=== PATIENT | female | born 1930 | race Caucasian/White ===

== ENCOUNTER 2018-08-20 17:11 | Emergency (ER) | payer MEDICARE, OTHER ==
[~2018-08-20] VITALS: Ht 154.9 cm; Wt 68.0 kg
[2018-08-20] MEDS ORDERED: TETANUS,DIPTH,PERTUSS P/F (BOOSTRIX) 0.5 ML VIAL IM ONE (17:30)
[2018-08-20] MEDS ORDERED: TR1O15 TP (17:33)
[2018-08-20] MEDS ORDERED: DOXY100T2 PO (17:33)
--- NOTE | 2018-08-20 17:34 | ED Integumentary General ---
General Chief Complaint: Bite-Animal/Human/Insect Stated Complaint: TICK BITE ON BACK Nursing Triage Note: TICK BITE ON HER MID BACK BUT REMOVED THE TICK ON MONDAY AND IT WAS STILL ALIVE WHEN SHE REMOVED IT. REDNESS ABOUT DIME SIZE TO THE SITE. NO DRAINAGE. Source: patient, RN notes reviewed Exam Limitations: no limitations History of Present Illness Date Seen by Provider: August 20, 2018 Time Seen by Provider: 17:26 Initial Comments Patient presents c/ c/o a tick bite to her mid back last Monday, 08/15. States she removed the tick and its' head but now concerned because of the redness that has developed @ the bite site. Thought she better get it checked. Timing/Duration: other (see above) Location: torso (mid back) Possible Cause: insect bite (tick) Modifying Factors: improves with other Associated Symptoms: other (redness) Allergies and Home Medications Allergies Coded Allergies: No Known Drug Allergies (Unverified , 08/20/18) Home Medications Doxycycline Hyclate 100 Mg Tablet, 100 MG PO BID Prescribed by: HANK TAYLOR on 08/20/181732 Triamcinolone Acet 15 Gm Oint, 1 APPLIC TP BID Prescribed by: HANK TAYLOR on 08/20/181732 Patient Home Medication List Home Medication List Reviewed: Yes Review of Systems Review of Systems Constitutional: see HPI Skin: see HPI, other (redness @ tick bite mid back) All Other Systems Reviewed Negative Unless Noted: Yes (Negative excepted noted.) Past Gqamkln-Vliemi-Uygaoi Hx Patient Social History Recent Foreign Travel: No Contact w/Someone Who Travel: No Recent Infectious Disease Expo: No Physical Abuse: No Sexual Abuse: No Mistreated: No Fear: No Physical Exam Vital Signs Vital Signs - First Documented 08/20/18 17:15 Temp 99.8 Pulse 76 Resp 18 B/P (MAP) 193/76 (115) Capillary Refill : Less Than 3 Seconds General Appearance: WD/WN, no apparent distress Cardiovascular: regular rate, rhythm Respiratory: no respiratory distress Neurologic/Psychiatric: no motor/sensory deficits, alert, normal mood/affect, oriented x 3 Skin: warm/dry Skin Problem Location: torso (mid back dime sized redness around reported tick bite. No evidence of any retained tick upon close inspection. (+) blanching. ) Skin Problem Character: blanching, erythema Progress/Results/Core Measures Results/Orders My Orders Orders - HANK TAYLOR DO Dipht,Pertuss(Acell),Tet Adult (Boostrix (08/20/18 17:30) Vital Signs/I&O 08/20/18 17:15 Temp 99.8 Pulse 76 Resp 18 B/P (MAP) 193/76 (115) Blood Pressure Mean: 115 Departure Impression Primary Impression: Tick bite of back Disposition: HOME, SELF-CARE Condition: Stable Departure-Patient Inst. Decision time for Depature: 17:31 Referrals: JODI PAREKH APRN (PCP/Family) Primary Care Physician Patient Instructions: Insect Bites and Stings (DC) Scripts Triamcinolone Acet (Triamcinolone Acetonide 0.1% Ointment) 15 Gm Oint 1 APPLIC TP BID for tick bite, #1 TUBE 0 Refills Prov: HANK TAYLOR DO 08/20/18 Doxycycline Hyclate (Doxycycline Hyclate) 100 Mg Tablet 100 MG PO BID for 10 Days, #20 TAB 0 Refills Prov: HANK TAYLOR DO 08/20/18 HANK TAYLOR DO August 20, 2018 17:34
[2018-08-20 17:44] VITALS: BP 154/72
== END 2018-08-20 17:45 | disposition home or self-care (01) ==
LOC: ER FS 17:14
DX: S20.469A Insect bite (nonvenomous) of unspecified back wall of thorax, initial encounter (principal); Z23 Encounter for immunization; W57.XXXA Bitten or stung by nonvenomous insect and other nonvenomous arthropods, initial encounter
CPT/HCPCS: 99284

== ENCOUNTER → 2018-12-20 | Outpatient (CLI) | payer MEDICARE, OTHER ==
[~2018-12-20] MED LIST: DOXY100T2 PO; TR1O15 TP
--- NOTE | 2018-12-20 12:57 | Diagnostic Imaging Report ---
INDICATION: Cervical pain. COMPARISON: None available. TECHNIQUE: Four radiographs of the cervical spine dated December 20, 2018. FINDINGS: Minimal anterolisthesis of C4 on C5 measuring approximately 2 mm. Minimal retrolisthesis of C5 on C6 measuring approximately 2 mm. Besides endplate degenerative changes, particularly at C5-C6, vertebral body heights are otherwise well-maintained. Severe disc space height loss at C5-C6. Otherwise, disc space heights are well-maintained. Scattered facet joint degenerative changes. The lateral masses are well seated. The dens is predominantly obscured by overlying teeth and osseous structures. No acute fracture or dislocation. No destructive osseous process. Scattered vascular calcification. Prevertebral soft tissues are unremarkable. The visualized lung apices are clear. IMPRESSION: No acute osseous abnormality with moderate degenerative changes, by far greatest at C5-C6. Dictated by: Dictated on workstation # [id number]
== END ==
LOC: RAD FS 11:23
PROVIDERS: ATTEND Nurse Practitioner Family
DX: M47.812 Spondylosis without myelopathy or radiculopathy, cervical region (principal)
CPT/HCPCS: 72040

== ENCOUNTER 2019-03-27 21:31 | Emergency (ER) | payer MEDICARE, OTHER ==
[~2019-03-27] VITALS: Ht 164.9 cm; Wt 69.8 kg
--- NOTE | 2019-03-27 21:59 | ED Abdominal Pain ---
General Chief Complaint: Abdominal/GI Problems Stated Complaint: SEVERE PAIN IN L GROIN,RASH Nursing Triage Note: Patient states that she is having lower left abdominal pain that started today. Patient does report that it feels better when she passes gas. She reports having a bowel movement this morning but feels like she needs to go again. Sepsis Screen: No Definite Risk Source of Information: Patient Exam Limitations: No Limitations History of Present Illness Date Seen by Provider: Mar 27, 2019 Time Seen by Provider: 21:40 Initial Comments Patient came into the emergency room with complaint of having left lower quadrant abdominal pain for the past 2-3 days and was having nausea. She does have prior history of diverticulitis. Patient also noticed rash on her left lower back in her tailbone area 10 days ago. On exam it does not appear like shingles. Patient denies having any fever or chills. She feels nauseous but denies having any vomiting. She's been eating and drinking normally. Timing/Duration: 2-3 Days Severity/Quality: Mild Location: LLQ Radiation: No Radiation Activities at Onset: None Associated Symptoms: No Back Pain, No Chest Pain, No Headache; Nausea/Vomiting; No Weakness Allergies and Home Medications Allergies Coded Allergies: No Known Drug Allergies (Unverified , 08/20/18) Home Medications Doxycycline Hyclate 100 Mg Tablet, 100 MG PO BID Prescribed by: HANK TAYLOR on 08/20/181732 Triamcinolone Acet 15 Gm Oint, 1 APPLIC TP BID Prescribed by: HANK TAYLOR on 08/20/181732 Patient Home Medication List Home Medication List Reviewed: Yes Review of Systems Review of Systems Constitutional: see HPI EENTM: See HPI Respiratory: Denies Cough Cardiovascular: Denies Chest Pain Gastrointestinal: Abdominal Pain Genitourinary: Denies Burning Musculoskeletal: No back pain Skin: No see HPI Psychiatric/Neurological: Denies Weakness Endocrine: See HPI Hematologic/Lymphatic: See HPI Past Bsaqihz-Rhsavu-Szkhum Hx Patient Social History Alcohol Use: Denies Use Recreational Drug Use: No Smoking Status: Never a Smoker 2nd Hand Smoke Exposure: No Recent Foreign Travel: No Contact w/Someone Who Travel: No Recent Infectious Disease Expo: No Physical Abuse: No Sexual Abuse: No Mistreated: No Fear: No Seasonal Allergies Seasonal Allergies: No Past Medical History Appendectomy, Breast, Cystectomy, Hysterectomy, Orthopedic Respiratory: No Cardiac: Yes Hypertension 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 oz. 68.638297qs; 25.00 BMI Method:Stated General Appearance: no apparent distress HEENT: PERRL/EOMI, normal ENT inspection Neck: non-tender, full range of motion, supple Respiratory: chest non-tender, lungs clear, normal breath sounds, no respiratory distress, no accessory muscle use Cardiovascular: normal peripheral pulses, regular rate, rhythm, no edema, no gallop, no JVD, no murmur Gastrointestinal: normal bowel sounds, non tender, soft, no organomegaly, no pulsatile mass Extremities: normal range of motion, non-tender, normal inspection, no pedal edema, no calf tenderness, normal capillary refill, pelvis stable Pelvic: discharge 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, no motor/sensory deficits, alert, normal mood/affect, oriented x 3 Skin: normal color, other (no shingles rash) Progress/Results/Core Measures Results/Orders Lab Results Laboratory Tests Test 03/27/19 22:15 Range/Units White Blood Count 5.0 4.3-11.0 10^3/uL Red Blood Count 4.94 4.35-5.85 10^6/uL Hemoglobin 13.4 11.5-16.0 G/DL Hematocrit 40 35-52 % Mean Corpuscular Volume 81 80-99 FL Mean Corpuscular Hemoglobin 27 25-34 PG Mean Corpuscular Hemoglobin Concent 33 32-36 G/DL Red Cell Distribution Width 13.2 10.0-14.5 % Platelet Count 205 130-400 10^3/uL Mean Platelet Volume 9.6 7.4-10.4 FL Neutrophils (%) (Auto) 51 42-75 % Lymphocytes (%) (Auto) 30 12-44 % Monocytes (%) (Auto) 13 H 0-12 % Eosinophils (%) (Auto) 4 0-10 % Basophils (%) (Auto) 1 0-10 % Neutrophils # (Auto) 2.5 1.8-7.8 X 10^3 Lymphocytes # (Auto) 1.5 1.0-4.0 X 10^3 Monocytes # (Auto) 0.7 0.0-1.0 X 10^3 Eosinophils # (Auto) 0.2 0.0-0.3 10^3/uL Basophils # (Auto) 0.1 0.0-0.1 10^3/uL Urine Color YELLOW Urine Clarity CLEAR Urine pH 7.0 5-9 Urine Specific [place] 1.010 L 1.016-1.022 Urine Protein NEGATIVE NEGATIVE Urine Glucose (UA) NEGATIVE NEGATIVE Urine Ketones NEGATIVE NEGATIVE Urine Nitrite NEGATIVE NEGATIVE Urine Bilirubin NEGATIVE NEGATIVE Urine Urobilinogen 0.2 < = 1.0 MG/DL Urine Leukocyte Esterase NEGATIVE NEGATIVE Urine RBC (Auto) NEGATIVE NEGATIVE Urine RBC NONE /HPF Urine WBC RARE /HPF Urine Squamous Epithelial Cells 0-2 /HPF Urine Crystals NONE /LPF Urine Bacteria NEGATIVE /HPF Urine Casts NONE /LPF Urine Mucus NONE /LPF Urine Culture Indicated NO Sodium Level 137 135-145 MMOL/L Potassium Level 4.1 3.6-5.0 MMOL/L Chloride Level 100 98-107 MMOL/L Carbon Dioxide Level 22 21-32 MMOL/L Anion Gap 15 H 5-14 MMOL/L Blood Urea Nitrogen 12 7-18 MG/DL Creatinine 0.74 0.60-1.30 MG/DL Estimat Glomerular Filtration Rate > 60 BUN/Creatinine Ratio 16 Glucose Level 128 H 70-105 MG/DL Calcium Level 9.7 8.5-10.1 MG/DL Corrected Calcium 9.4 8.5-10.1 MG/DL Total Bilirubin 0.3 0.1-1.0 MG/DL Aspartate Amino Transf (AST/SGOT) 29 5-34 U/L Alanine Aminotransferase (ALT/SGPT) 23 0-55 U/L Alkaline Phosphatase 125 40-136 U/L Total Protein 7.0 6.4-8.2 GM/DL Albumin 4.4 3.2-4.5 GM/DL Lipase 57 8-78 U/L My Orders Orders - ELIZABETH SEYMOUR MD Cbc With Automated Diff (03/27/19 21:54) Comprehensive Metabolic Panel (03/27/19 21:54) Urinalysis (03/27/19 21:54) Lipase (03/27/19 21:54) Peripheral Iv Line Care 00,04,08,12,16,20 (03/27/19 21:54) Fentanyl Injection (Sublimaze Injection (03/27/19 22:00) Ondansetron Injection (Zofran Injectio (03/27/19 22:00) Ct Abdomen/Pelvis W (03/27/19 22:52) Iohexol Injection (Omnipaque 350 Mg/Ml 1 (03/27/19 23:00) Received Contrast (Hold Metformin- Contr (03/27/19 23:00) Ns (Ivpb) (Sodium Chloride 0.9% Ivpb Bag (03/27/19 23:00) Medications Given in ED Current Medications Medications Dose Ordered Sig/Juan Route Start Time Stop Time Status Last Admin Dose Admin Fentanyl Citrate 25 mcg ONCE ONCE IVP 03/27/19 22:00 03/27/19 22:01 DC 03/27/19 22:16 25 MCG Iohexol 100 ml ONCE ONCE IV 03/27/19 23:00 03/27/19 23:01 DC 03/27/19 23:12 100 ML Ondansetron HCl 4 mg ONCE ONCE IVP 03/27/19 22:00 03/27/19 22:01 DC 03/27/19 22:16 4 MG Sodium Chloride 100 ml ONCE ONCE IV 03/27/19 23:00 03/27/19 23:01 DC 03/27/19 23:12 100 ML Vital Signs/I&O 03/27/19 21:35 Temp 36.5 Pulse 89 Resp 18 B/P (MAP) 196/89 (124) Pulse Ox 96 O2 Delivery Room Air Blood Pressure Mean: 124 Progress Progress Note : Time: 00:18 Progress Note Patient was informed of abnormal lab results and CT results. She felt comfortable going home. Advised to take izoz-phv-clhamcy stool softeners like MiraLAX. Diagnostic Imaging Diagonstic Imaging: CT (diverticulosis but no diverticulitis; moderate stool present) Departure Impression Primary Impression: Constipation Qualified Codes: K59.01 - Slow transit constipation Disposition: HOME, SELF-CARE Condition: Stable Departure-Patient Inst. Decision time for Depature: 00:18 Referrals: [facility] (PCP) Primary Care Physician JODI PAREKH APRN (Family) Primary Care Physician Patient Instructions: Constipation, Adult (DC) Add. Discharge Instructions: Follow-up with the primary care doctor in 5-7 days. Take algk-hom-jnvhpey MiraLAX 17 g by mouth daily for constipation. Drink a lot of oral fluids and increase fiber in the diet. Return to the emergency room if has any concerns. All discharge instructions reviewed with patient and/or family. Voiced understanding. ELIZABETH SEYMOUR MD Mar 27, 2019 21:59
[2019-03-27] MEDS ORDERED: ONDANSETRON 4 MG/2 ML (SDV) Z0FRAN IVP ONE (22:00)
[2019-03-27] MEDS ORDERED: fentaNYL INJECTION 100 MCG/2 ML AMP IVP ONE (22:00)
[2019-03-27 22:29] LABS: COLOR,URINE YELLOW
[2019-03-27 22:30] LABS: BACTERIA,URINE NEGATIVE /HPF; BILIRUBIN,URINE NEGATIVE (NEGATIVE); CLARITY,URINE CLEAR; GLUCOSE, URINE (UA) NEGATIVE (NEGATIVE); KETONES,URINE NEGATIVE (NEGATIVE); LEUKOCYTE ESTERASE ,URINE NEGATIVE (NEGATIVE); NITRITE,URINE NEGATIVE (NEGATIVE); PROTEIN,URINE NEGATIVE (NEGATIVE); SQUAMOUS EPITHELIAL CELL,UR 0-2 /HPF; WBC,URINE RARE /HPF
[2019-03-27 22:31] LABS: HEMOGLOBIN 13.4 G/DL (11.5-16.0); MEAN CORPUSCULAR HEMOGLOBIN 27 PG (25-34)
[2019-03-27 22:32] LABS: EOSINOPHILS % (AUTO) 4 % (0-10); HEMATOCRIT 40 % (35-52); LYMPHOCYTES % (AUTO) 30 % (12-44); MEAN CORPUSCULAR HGB CONC 33 G/DL (32-36); MEAN CORPUSCULAR VOLUME 81 FL (80-99); MEAN PLATELET VOLUME 9.6 FL (7.4-10.4); MONOCYTES % (AUTO) 13 % (0-12); NEUTROPHILS % (AUTO) 51 % (42-75); PLATELET COUNT 205 10^3/uL (130-400); RED CELL DISTRIBUTION WIDTH 13.2 % (10.0-14.5)
[2019-03-27 22:33] LABS: BASOPHILS # (AUTO) 0.1 10^3/uL (0.0-0.1); BASOPHILS % (AUTO) 1 % (0-10); EOSINOPHILS # (AUTO) 0.2 10^3/uL (0.0-0.3); LYMPHOCYTES # (AUTO) 1.5 X 10^3 (1.0-4.0); MONOCYTES # (AUTO) 0.7 X 10^3 (0.0-1.0); NEUTROPHILS # (AUTO) 2.5 X 10^3 (1.8-7.8)
[2019-03-27 23:00] LABS: CHLORIDE 100 MMOL/L (98-107); POTASSIUM 4.1 MMOL/L (3.6-5.0); SODIUM 137 MMOL/L (135-145)
[2019-03-27] MEDS ORDERED: IOHEXOL 350 MG/ML 100 ML (OMNIPAQUE 350) VIAL IV ONE (23:00)
[2019-03-27] MEDS ORDERED: HOLD METFORMIN - RECEIVED CONTRAST 20 ML VIAL IV SCH (23:00)
[2019-03-27] MEDS ORDERED: NS 100 ML (IVPB) BAG IV ONE (23:00)
[2019-03-27 23:01] LABS: ALANINE AMINOTRANSFERASE 23 U/L (0-55); ALBUMIN 4.4 GM/DL (3.2-4.5); ALKALINE PHOSPHATASE 125 U/L (40-136); BILIRUBIN,TOTAL 0.3 MG/DL (0.1-1.0); BUN/CREATININE RATIO 16; CALCIUM 9.7 MG/DL (8.5-10.1); CARBON DIOXIDE 22 MMOL/L (21-32); CREATININE SERUM 0.74 MG/DL (0.60-1.30); GFR ESTIMATED > 60; GLUCOSE 128 MG/DL (70-105)
[2019-03-27 23:02] LABS: LIPASE 57 U/L (8-78)
[2019-03-28 00:22] VITALS: BP 183/84
--- NOTE | 2019-03-28 07:30 | Diagnostic Imaging Report ---
PROCEDURE: CT abdomen and pelvis with contrast. TECHNIQUE: Multiple contiguous axial images were obtained through the abdomen and pelvis after administration of intravenous contrast. Auto Exposure Controls were utilized during the CT exam to meet ALARA standards for radiation dose reduction. DATE: March 27, 2019. COMPARISON: None. INDICATION: 88-year-old female, left-sided abdominal pain. FINDINGS: There is dependent atelectasis. The heart is not grossly enlarged. There is no pericardial effusion. The liver is normal in size and contour. There is no focal concerning liver lesion. The main, right, and left portal veins are patent. The gallbladder is unremarkable. There is no biliary ductal dilation. The main pancreatic duct is not abnormally dilated. Unremarkable appearance of the pancreatic parenchyma. The spleen is normal in size. The adrenal glands are unremarkable. Unremarkable appearance of the renal parenchyma. The urinary collecting systems are not distended. There is no identified renal or ureteral stone. The urinary bladder is unremarkable. The uterus is not seen and may be surgically absent. There is diverticulosis without evidence of acute diverticulitis. There is no free intraperitoneal air. The appendix is not well seen. There are no secondary findings to specifically suggest acute appendicitis. There is a very small hiatal hernia. There is no free intraperitoneal air. There is no drainable fluid collection. There is no free pelvic fluid. There are atherosclerotic calcifications. There is no identified abnormally enlarged lymph node in the abdomen or pelvis which meets CT size criteria for adenopathy. There is chondrocalcinosis. There are degenerative changes of the spine. There is no identified acute bony abnormality. IMPRESSION: CT ABDOMEN AND PELVIS. 1. No identified acute abnormality in the abdomen or pelvis. Dictated by: Dictated on workstation # [id number]
== END 2019-03-28 00:22 | disposition home or self-care (01) ==
LOC: EDUNIT# 21:31 → ER FS 21:32
DX: K59.00 Constipation, unspecified (principal); I10 Essential (primary) hypertension; F41.9 Anxiety disorder, unspecified; Z90.49 Acquired absence of other specified parts of digestive tract; Z90.710 Acquired absence of both cervix and uterus
CPT/HCPCS: 36415; 74177; 80053; 81000; 83690; 85025; 96374; 96375

== ENCOUNTER → 2019-04-10 | Outpatient (CLI) | payer MEDICARE, OTHER ==
--- NOTE | 2019-04-10 15:40 | Diagnostic Imaging Report ---
INDICATION: Generalized abdominal pain. COMPARISON: None. FINDINGS: Supine and upright views the abdomen demonstrate nonobstructive small bowel gas pattern. Mild amount of air and stool are seen scattered throughout the colon. No abnormal air-fluid levels or large collection of free intraperitoneal air is seen. No abnormal extraosseous calcifications or radiopaque foreign bodies are identified. Bony structures are age-appropriate. IMPRESSION: 1. Nonobstructive small bowel gas pattern. Dictated by: Dictated on workstation # [id number]
--- NOTE | 2019-04-10 15:40 | Diagnostic Imaging Report ---
INDICATION: Foot pain. COMPARISON: None. FINDINGS: Three views of the right foot demonstrate no acute fracture or dislocation. There are no focal osseous lesions. There is no soft tissue swelling. Joint spaces are well maintained. No radiopaque foreign bodies are seen. IMPRESSION: No acute fractures or dislocations of the right foot. Dictated by: Dictated on workstation # [id number]
== END ==
LOC: RAD FS 14:57
PROVIDERS: ATTEND Nurse Practitioner Family
DX: M79.671 Pain in right foot (principal); R10.84 Generalized abdominal pain
CPT/HCPCS: 73630; 74019

== ENCOUNTER 2020-07-07 13:23 | Emergency (ER) | payer MEDICARE, OTHER ==
[~2020-07-07] VITALS: Ht 154.9 cm; Wt 68.0 kg
--- NOTE | 2020-07-07 13:38 | ED General ---
General Stated Complaint: ELEV BP (199/105) History of Present Illness Date Seen by Provider: Jul 07, 2020 Time Seen by Provider: 13:37 Initial Comments 89-year-old female sent in with concerns of elevated blood pressure. Patient was seen by her primary care provider yesterday and had elevated blood pressure and was started on a blood pressure medication. Patient was at the eye doctor today. She reports that she was a little anxious. That when they took her blood pressure it was 199/105. Patient felt like her heart was racing she had a little discomfort in her chest. Patient reports she took a half of Xanax and her symptoms resolved. Patient reports that she had similar symptoms yesterday that resolved after taking a half of Xanax. She had a negative EKG yesterday. She has a cardiology consult next week. Patient reports that she occasionally gets anxious and has similar symptoms. Allergies and Home Medications Allergies Coded Allergies: No Known Drug Allergies (Unverified , 08/20/18) Home Medications Doxycycline Hyclate 100 Mg Tablet, 100 MG PO BID Prescribed by: HANK TAYLOR on 08/20/181732 Triamcinolone Acet 15 Gm Oint, 1 APPLIC TP BID Prescribed by: HANK TAYLOR on 08/20/181732 Patient Home Medication List Home Medication List Reviewed: Yes Review of Systems Review of Systems Constitutional: no symptoms reported Respiratory: no symptoms reported; No cough, No short of breath Cardiovascular: see HPI Gastrointestinal: no symptoms reported Genitourinary: no symptoms reported Musculoskeletal: no symptoms reported Psychiatric/Neurological: Anxiety Past Iesrplg-Nrdqhp-Yfpklv Hx Past Med/Social Hx: Reviewed Nursing Past Med/Soc Hx Patient Social History 2nd Hand Smoke Exposure: No Seasonal Allergies Seasonal Allergies: No Past Medical History Appendectomy, Breast, Cystectomy, Hysterectomy, Orthopedic Respiratory: No Cardiac: Yes Hypertension 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 oz. 68.744278ns; 25.00 BMI Method:Stated General Appearance: No Apparent Distress, WD/WN HEENT: PERRL/EOMI Neck: Non Tender Respiratory: Lungs Clear, Normal Breath Sounds, No Accessory Muscle Use Cardiovascular: Regular Rate, Rhythm, No Edema Gastrointestinal: Soft Extremity: Normal Capillary Refill, Normal Inspection, Normal Range of Motion Progress/Results/Core Measures Suspected Sepsis SIRS Temperature: Pulse: Respiratory Rate: Blood Pressure / Mean: Results/Orders Vital Signs/I&O 07/07/20 13:43 Temp 37.0 Pulse 92 Resp 20 B/P (MAP) 174/72 (106) Pulse Ox 98 O2 Delivery Room Air Capillary Refill : Progress Note : Progress Note Patient symptoms consistent with likely anxiety with may be some essential hypertension. Patient's initial blood pressure was systolic 170s with the next check systolic in the 130s. Patient remained symptom-free. At this time expanded work-up is not warranted. Patient stable and will be discharged home. Departure Impression Primary Impression: Hypertension Qualified Codes: I10 - Essential (primary) hypertension Additional Impression: Anxious reaction Disposition: 01 HOME, SELF-CARE Condition: Stable Departure-Patient Inst. Referrals: JODI PAREKH APRN (PCP) Primary Care Physician [facility] (Family) Primary Care Physician Patient Instructions: Anxiety, Adult ED, High Blood Pressure in Adults, Controlling Your Blood Pressure Through Lifestyle Add. Discharge Instructions: Follow-up with your primary care provider for recheck of your blood pressure as discussed with them Take your new blood pressure medication as prescribed by your primary care provider Return to the ER as needed JACQUELINE LOPEZ DO Jul 07, 2020 13:37
[2020-07-07 14:18] VITALS: BP 121/56
== END 2020-07-07 14:18 | disposition home or self-care (01) ==
LOC: EDUNIT# 13:23 → ER FS 13:24
DX: I10 Essential (primary) hypertension (principal); F41.9 Anxiety disorder, unspecified
CPT/HCPCS: 99283

== ENCOUNTER → 2020-07-21 | Outpatient (CLI) | payer MEDICARE, OTHER ==
--- NOTE | 2020-07-21 15:38 | Diagnostic Imaging Report ---
INDICATION: Chest wall pain. EXAMINATION: PA and lateral chest. FINDINGS: The heart size and pulmonary vascularity are normal. The lungs are clear. There are no effusions or pneumothoraces. IMPRESSION: Negative chest. Dictated by: Dictated on workstation # [id number]
== END ==
LOC: RAD FS 14:20
PROVIDERS: ATTEND Nurse Practitioner Family
DX: R07.89 Other chest pain (principal)
CPT/HCPCS: 71046

== ENCOUNTER 2020-07-29 09:07 | Emergency (ER) | payer MEDICARE, OTHER ==
[~2020-07-29] VITALS: Ht 154.9 cm; Wt 68.5 kg
--- NOTE | 2020-07-29 09:29 | ED Cardiac General ---
History of Present Illness General Chief Complaint: Chest Pain Stated Complaint: CHEST PAIN History of Present Illness Date Seen by Provider: Jul 29, 2020 Time Seen by Provider: 09:18 Initial Comments 89-year-old female presents with chest pain for the past few months, occurring daily and mostly constant, however states it waxes and wanes. No known precipitating event or alleviating factors. She has seen a sql analyst in [place] and has a stress test scheduled next week. She does occasionally take a nitroglycerin and occasionally does have some relief. Today she did take a full aspirin this morning at 8:00. She does have a history of stomach problems and reflux as well as hypertension. States her last heart catheterization was 20 years ago and was normal. No recent illness, fever or chills. She does admit that she has had daily dry cough for years (she does take ramipril). Allergies and Home Medications Allergies Coded Allergies: No Known Drug Allergies (Unverified , 08/20/18) Home Medications Doxycycline Hyclate 100 Mg Tablet, 100 MG PO BID Prescribed by: HANK TAYLOR on 08/20/181732 Triamcinolone Acet 15 Gm Oint, 1 APPLIC TP BID Prescribed by: HANK TAYLOR on 08/20/181732 Patient Home Medication List Home Medication List Reviewed: Yes Review of Systems Review of Systems Constitutional: No fever, No malaise, No weakness EENTM: No Symptoms Reported Respiratory: Denies Cough, Denies Shortness of Air, Denies SOA With Exertion, Denies SOA at Rest, Denies Stridor, Denies Wheezing Cardiovascular: See HPI, Chest Pain; Denies Edema, Denies Irregular Heart Rate, Denies Lightheadedness, Denies Palpitations, Denies Syncope Gastrointestinal: Denies Abdominal Pain, Denies Constipated, Denies Diarrhea; Nausea (intermittent); Denies Vomiting Musculoskeletal: No back pain, No joint pain, No muscle pain Skin: No change in color, No lesions, No rash Past Lenkvvk-Hybeoq-Rnuqqz Hx Past Med/Social Hx: Reviewed Nursing Past Med/Soc Hx Patient Social History Alcohol Use: Denies Use Smoking Status: Never a Smoker 2nd Hand Smoke Exposure: No Seasonal Allergies Seasonal Allergies: No Past Medical History Appendectomy, Breast, Cystectomy, Hysterectomy, Orthopedic Respiratory: No Cardiac: Yes Angina, Hypertension 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 oz. 68.204916qu; 28.00 BMI Method:Stated General Appearance: No Apparent Distress, WD/WN Neck: Full Range of Motion, Normal Inspection, Non Tender Respiratory: Chest Non Tender, Lungs Clear, Normal Breath Sounds, No Accessory Muscle Use, No Respiratory Distress Cardiovascular: Regular Rate, Rhythm, No Edema, No Gallop, No JVD, No Murmur, Normal Peripheral Pulses Gastrointestinal: Normal Bowel Sounds, No Organomegaly, No Pulsatile Mass, Non Tender Extremity: Normal Capillary Refill, Normal Inspection, Normal Range of Motion, Non Tender, No Calf Tenderness, No Pedal Edema Neurologic/Psychiatric: Alert, Oriented x3, No Motor/Sensory Deficits, Normal Mood/Affect Skin: Normal Color, Warm/Dry Progress/Results/Core Measures Results/Orders Lab Results Laboratory Tests Test 07/29/20 09:13 Range/Units White Blood Count 5.3 4.3-11.0 10^3/uL Red Blood Count 5.22 4.35-5.85 10^6/uL Hemoglobin 14.1 11.5-16.0 G/DL Hematocrit 43 35-52 % Mean Corpuscular Volume 83 80-99 FL Mean Corpuscular Hemoglobin 27 25-34 PG Mean Corpuscular Hemoglobin Concent 33 32-36 G/DL Red Cell Distribution Width 13.3 10.0-14.5 % Platelet Count 156 130-400 10^3/uL Mean Platelet Volume 10.5 H 7.4-10.4 FL Immature Granulocyte % (Auto) 0 % Neutrophils (%) (Auto) 57 42-75 % Lymphocytes (%) (Auto) 29 12-44 % Monocytes (%) (Auto) 9 0-12 % Eosinophils (%) (Auto) 4 0-10 % Basophils (%) (Auto) 1 0-10 % Neutrophils # (Auto) 3.0 1.8-7.8 X 10^3 Lymphocytes # (Auto) 1.5 1.0-4.0 X 10^3 Monocytes # (Auto) 0.5 0.0-1.0 X 10^3 Eosinophils # (Auto) 0.2 0.0-0.3 10^3/uL Basophils # (Auto) 0.1 0.0-0.1 10^3/uL Immature Granulocyte # (Auto) 0.0 0.0-0.1 10^3/uL Sodium Level 141 135-145 MMOL/L Potassium Level 4.0 3.6-5.0 MMOL/L Chloride Level 104 98-107 MMOL/L Carbon Dioxide Level 27 21-32 MMOL/L Anion Gap 10 5-14 MMOL/L Blood Urea Nitrogen 19 H 7-18 MG/DL Creatinine 0.73 0.60-1.30 MG/DL Estimat Glomerular Filtration Rate > 60 BUN/Creatinine Ratio 26 Glucose Level 129 H 70-105 MG/DL Calcium Level 9.9 8.5-10.1 MG/DL Corrected Calcium 8.5-10.1 MG/DL Total Bilirubin 0.5 0.1-1.0 MG/DL Aspartate Amino Transf (AST/SGOT) 22 5-34 U/L Alanine Aminotransferase (ALT/SGPT) 19 0-55 U/L Alkaline Phosphatase 109 40-136 U/L Troponin I < 0.30 <0.30 NG/ML Total Protein 7.5 6.4-8.2 GM/DL Albumin 4.8 H 3.2-4.5 GM/DL My Orders Orders - ROVENSTINESHERRY DO Ed Iv/Invasive Line Start (07/29/20 09:24) Chest 1 View Ap/Pa Only (07/29/20 09:24) Ekg Tracing (07/29/20 09:24) Cbc With Automated Diff (07/29/20 09:24) Comprehensive Metabolic Panel (07/29/20 09:24) Troponin I Fs (07/29/20 09:24) Vital Signs/I&O 07/29/20 07/29/20 09:19 09:27 Temp 36.1 Pulse 77 Resp 16 B/P (MAP) 165/69 (101) Pulse Ox 99 O2 Delivery Room Air Room Air Progress Progress Note : Progress Note Uneventful ER stay, patient with history of similar chest pain chronically. Followed by cardiology and has an appointment next week for a stress echo. Patient labs without any significant abnormality and EKG without any acute changes. Patient does admit to stress and anxiety, lives alone. Her last year and she has been less active/ social since [facility] [place] lockdowns. Initial ECG Impression Date: Jul 29, 2020 Initial ECG Impression Time: 09:40 Initial ECG Rhythm: Normal Sinus Initial ECG Intervals: Normal Initial ECG Impression: Normal Initial ECG Comparisson: No Previous ECG Available Comment no acute ST or ischemic changes. Inf. Q-wave Departure Impression Primary Impression: Chest pain Qualified Codes: R07.9 - Chest pain, unspecified Disposition: 01 HOME, SELF-CARE Condition: Stable Departure-Patient Inst. Referrals: JODI PAREKH APRN (PCP) Primary Care Physician [facility] (Family) Primary Care Physician Patient Instructions: Chest Pain (DC) Add. Discharge Instructions: Keep your follow up appointment for a stress test scheduled on 03 August All discharge instructions reviewed with patient and/or family. Voiced understanding. SHERRY PERRY DO Jul 29, 2020 09:29
[2020-07-29 09:35] LABS: HEMATOCRIT 43 % (35-52); HEMOGLOBIN 14.1 G/DL (11.5-16.0); MEAN CORPUSCULAR HEMOGLOBIN 27 PG (25-34); MEAN CORPUSCULAR HGB CONC 33 G/DL (32-36); MEAN CORPUSCULAR VOLUME 83 FL (80-99); MEAN PLATELET VOLUME 10.5 FL (7.4-10.4); NEUTROPHILS % (AUTO) 57 % (42-75); PLATELET COUNT 156 10^3/uL (130-400); WHITE BLOOD COUNT 5.3 10^3/uL (4.3-11.0)
[2020-07-29 09:36] LABS: BASOPHILS # (AUTO) 0.1 10^3/uL (0.0-0.1); BASOPHILS % (AUTO) 1 % (0-10); EOSINOPHILS # (AUTO) 0.2 10^3/uL (0.0-0.3); EOSINOPHILS % (AUTO) 4 % (0-10); LYMPHOCYTES # (AUTO) 1.5 X 10^3 (1.0-4.0); LYMPHOCYTES % (AUTO) 29 % (12-44); MONOCYTES # (AUTO) 0.5 X 10^3 (0.0-1.0); MONOCYTES % (AUTO) 9 % (0-12)
[2020-07-29 09:50] LABS: BUN/CREATININE RATIO 26; CALCIUM 9.9 MG/DL (8.5-10.1); CARBON DIOXIDE 27 MMOL/L (21-32); CHLORIDE 104 MMOL/L (98-107); CREATININE SERUM 0.73 MG/DL (0.60-1.30); GFR ESTIMATED > 60; GLUCOSE 129 MG/DL (70-105); SODIUM 141 MMOL/L (135-145)
[2020-07-29 09:51] LABS: ALANINE AMINOTRANSFERASE 19 U/L (0-55); ALBUMIN 4.8 GM/DL (3.2-4.5); ALKALINE PHOSPHATASE 109 U/L (40-136); BILIRUBIN,TOTAL 0.5 MG/DL (0.1-1.0); TOTAL PROTEIN 7.5 GM/DL (6.4-8.2)
--- NOTE | 2020-07-29 09:52 | Diagnostic Imaging Report ---
PATIENT HISTORY: cp. TECHNIQUE: Single frontal view of the chest. COMPARISON: 07/21/2020 FINDINGS: The lung volumes are normal. No focal consolidation is seen. No large pleural effusion or pneumothorax is seen. The cardiomediastinal silhouette is normal in size and contour. No acute osseous abnormality is seen. IMPRESSION: No acute pulmonary abnormality seen. Dictated by: Dictated on workstation # [id number]
[2020-07-29 10:08] VITALS: BP 161/71
== END 2020-07-29 10:19 | disposition home or self-care (01) ==
LOC: EDUNIT# 09:07 → ER FS 09:08
DX: R07.9 Chest pain, unspecified (principal); I10 Essential (primary) hypertension
CPT/HCPCS: 36415; 71045; 80053; 84484; 85025; 93005

== ENCOUNTER 2020-09-05 15:43 | Emergency (ER) | payer MEDICARE, OTHER ==
[2020-09-05 15:50] VITALS: BP 183/78
--- NOTE | 2020-09-05 16:02 | ED Cardiac General ---
History of Present Illness General Chief Complaint: Cardiac/General Problems Stated Complaint: ANKLE SWELLING | PRESSURE IN CHEST History of Present Illness Date Seen by Provider: Sep 05, 2020 Time Seen by Provider: 15:55 Initial Comments 89-year-old female presents with 4 hours of mild lower central chest pressure as well as concern of swelling of her extremities which was worse 3 days ago, better today. 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 Otherwise no acute problems. Denies recent illness, fever chills or cough. Denies abdominal pain, reflux, nausea or vomiting. Allergies and Home Medications Allergies Coded Allergies: No Known Drug Allergies (Unverified , 08/20/18) Home Medications Doxycycline Hyclate 100 Mg Tablet, 100 MG PO BID Prescribed by: HANK TAYLOR on 08/20/181732 Triamcinolone Acet 15 Gm Oint, 1 APPLIC TP BID Prescribed by: HANK TAYLOR on 08/20/181732 Patient Home Medication List Home Medication List Reviewed: Yes Review of Systems Review of Systems Constitutional: No chills, No diaphoresis, No fever, No malaise, No weakness EENTM: No Symptoms Reported Respiratory: Denies Cough; Shortness of Air (not currently), SOA With Exertion (occasionally) Cardiovascular: Chest Pain (pressure lower chest), Edema (resolved); Denies Irregular Heart Rate, Denies Lightheadedness, Denies Palpitations, Denies Syncope Gastrointestinal: Denies Abdominal Pain, Denies Constipated, Denies Diarrhea, Denies Nausea, Denies Vomiting Musculoskeletal: No back pain; joint pain (left knee pain); No joint swelling, No muscle pain, No neck pain Skin: No change in color, No lesions, No lumps, No rash Psychiatric/Neurological: Denies Anxiety, Denies Depressed, Denies Emotional Problems Past [id number]-[id number]-Nxyzxs Hx Past Med/Social Hx: Reviewed Nursing Past Med/Soc Hx Patient Social History Alcohol Use: Denies Use Smoking Status: Never a Smoker 2nd Hand Smoke Exposure: No Recent Hopitalizations: No Seasonal Allergies Seasonal Allergies: No Past Medical History Appendectomy, Breast, Cystectomy, Hysterectomy, Orthopedic Respiratory: No Cardiac: Yes Angina, Hypertension 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 oz. 68.949144el; 28.00 BMI Method:Stated General Appearance: No Apparent Distress, WD/WN HEENT: PERRL/EOMI, TMs Normal, Normal ENT Inspection Neck: Normal Inspection, Non Tender, Supple Respiratory: Chest Non Tender, Lungs Clear, Normal Breath Sounds, No Accessory Muscle Use, No Respiratory Distress Cardiovascular: Regular Rate, Rhythm, No Gallop, No JVD, Normal Peripheral Pulses Gastrointestinal: Normal Bowel Sounds, No Pulsatile Mass, Non Tender, Soft Extremity: Normal Capillary Refill, Normal Inspection, Non Tender, No Calf Tenderness, No Pedal Edema; No Swelling Neurologic/Psychiatric: Alert, Oriented x3, No Motor/Sensory Deficits, Normal Mood/Affect Skin: Normal Color, Warm/Dry Progress/Results/Core Measures Results/Orders Lab Results Laboratory Tests Test 09/05/20 15:55 Range/Units White Blood Count 7.0 4.3-11.0 10^3/uL Red Blood Count 5.04 4.35-5.85 10^6/uL Hemoglobin 13.7 11.5-16.0 G/DL Hematocrit 42 35-52 % Mean Corpuscular Volume 83 80-99 FL Mean Corpuscular Hemoglobin 27 25-34 PG Mean Corpuscular Hemoglobin Concent 33 32-36 G/DL Red Cell Distribution Width 13.7 10.0-14.5 % Platelet Count 163 130-400 10^3/uL Mean Platelet Volume 9.8 7.4-10.4 FL Immature Granulocyte % (Auto) 0 % Neutrophils (%) (Auto) 57 42-75 % Lymphocytes (%) (Auto) 29 12-44 % Monocytes (%) (Auto) 10 0-12 % Eosinophils (%) (Auto) 3 0-10 % Basophils (%) (Auto) 1 0-10 % Neutrophils # (Auto) 4.0 1.8-7.8 X 10^3 Lymphocytes # (Auto) 2.0 1.0-4.0 X 10^3 Monocytes # (Auto) 0.7 0.0-1.0 X 10^3 Eosinophils # (Auto) 0.2 0.0-0.3 10^3/uL Basophils # (Auto) 0.1 0.0-0.1 10^3/uL Immature Granulocyte # (Auto) 0.0 0.0-0.1 10^3/uL Sodium Level 138 135-145 MMOL/L Potassium Level 4.0 3.6-5.0 MMOL/L Chloride Level 103 98-107 MMOL/L Carbon Dioxide Level 25 21-32 MMOL/L Anion Gap 10 5-14 MMOL/L Blood Urea Nitrogen 16 7-18 MG/DL Creatinine 0.87 0.60-1.30 MG/DL Estimat Glomerular Filtration Rate > 60 BUN/Creatinine Ratio 18 Glucose Level 100 70-105 MG/DL Calcium Level 9.8 8.5-10.1 MG/DL Corrected Calcium 8.5-10.1 MG/DL Total Bilirubin 0.3 0.1-1.0 MG/DL Aspartate Amino Transf (AST/SGOT) 24 5-34 U/L Alanine Aminotransferase (ALT/SGPT) 22 0-55 U/L Alkaline Phosphatase 128 40-136 U/L Troponin I < 0.30 <0.30 NG/ML Total Protein 7.1 6.4-8.2 GM/DL Albumin 4.6 H 3.2-4.5 GM/DL My Orders Orders - ROVENSTINE,SHERRY L DO Ed Iv/Invasive Line Start (09/05/20 16:02) Chest 1 View Ap/Pa Only (09/05/20 16:02) Ekg Tracing (09/05/20 16:02) Cbc With Automated Diff (09/05/20 16:02) Comprehensive Metabolic Panel (09/05/20 16:02) Troponin I Fs (09/05/20 16:02) Vital Signs/I&O 09/05/20 15:50 Temp 36.9 Pulse 80 Resp 18 B/P (MAP) 183/78 (113) Pulse Ox 99 O2 Delivery Room Air Initial ECG Impression Date: Sep 05, 2020 Initial ECG Impression Time: 16:00 Initial ECG Rate: 76 Initial ECG Rhythm: Normal Sinus Initial ECG Impression: Normal Initial ECG Comparisson: No Previous ECG Available Comment no acute ST changes or other ischemic changes Departure Impression Primary Impression: Chest pain Qualified Codes: R07.9 - Chest pain, unspecified Disposition: 01 HOME, SELF-CARE Condition: Improved Departure-Patient Inst. Decision time for Depature: 16:36 Referrals: JODI PAREKH APRN (PCP) Primary Care Phys[facility] (Family) Primary Care Physician Patient Instructions: Chest Pain (DC) Add. Discharge Instructions: Follow up with your PCP in 1 week for re-evaluation, ER sooner if worse. All discharge instructions reviewed with patient and/or family. Voiced understanding. SHERRY PERRY DO Sep 05, 2020 16:02
[2020-09-05 16:04] LABS: HEMATOCRIT 42 % (35-52); HEMOGLOBIN 13.7 G/DL (11.5-16.0); LYMPHOCYTES % (AUTO) 29 % (12-44); MEAN CORPUSCULAR HEMOGLOBIN 27 PG (25-34); MEAN CORPUSCULAR HGB CONC 33 G/DL (32-36); MEAN CORPUSCULAR VOLUME 83 FL (80-99); MEAN PLATELET VOLUME 9.8 FL (7.4-10.4); NEUTROPHILS % (AUTO) 57 % (42-75); PLATELET COUNT 163 10^3/uL (130-400)
[2020-09-05 16:05] LABS: BASOPHILS # (AUTO) 0.1 10^3/uL (0.0-0.1); BASOPHILS % (AUTO) 1 % (0-10); EOSINOPHILS # (AUTO) 0.2 10^3/uL (0.0-0.3); EOSINOPHILS % (AUTO) 3 % (0-10); MONOCYTES # (AUTO) 0.7 X 10^3 (0.0-1.0); MONOCYTES % (AUTO) 10 % (0-12)
[2020-09-05 16:17] LABS: ALKALINE PHOSPHATASE 128 U/L (40-136); BILIRUBIN,TOTAL 0.3 MG/DL (0.1-1.0); BUN/CREATININE RATIO 18; CALCIUM 9.8 MG/DL (8.5-10.1); CARBON DIOXIDE 25 MMOL/L (21-32); CHLORIDE 103 MMOL/L (98-107); CREATININE SERUM 0.87 MG/DL (0.60-1.30); GFR ESTIMATED > 60; GLUCOSE 100 MG/DL (70-105); SODIUM 138 MMOL/L (135-145)
[2020-09-05 16:18] LABS: ALANINE AMINOTRANSFERASE 22 U/L (0-55); ALBUMIN 4.6 GM/DL (3.2-4.5); TOTAL PROTEIN 7.1 GM/DL (6.4-8.2)
--- NOTE | 2020-09-05 16:18 | Diagnostic Imaging Report ---
Indication: Chest pain. Comparison: 07/29/2020. Discussion: Single portable upright view of the chest was obtained. Low lung volumes. Normal heart size. No consolidation, pleural fluid or pneumothorax. No osseous abnormality. Impression: Negative chest. Dictated by: Dictated on workstation # [id number]
== END 2020-09-05 16:48 | disposition home or self-care (01) ==
LOC: EDUNIT# 15:43 → ER FS 15:46
DX: R07.9 Chest pain, unspecified (principal); I10 Essential (primary) hypertension
CPT/HCPCS: 36415; 71045; 80053; 84484; 85025; 93005

== ENCOUNTER → 2021-05-12 | Outpatient (CLI) | payer MEDICARE, OTHER ==
--- NOTE | 2021-05-12 11:49 | Diagnostic Imaging Report ---
EXAMINATION: Chest, two views. HISTORY: Persistent cough. COMPARISON: 09/05/2020. FINDINGS: Heart size and pulmonary vasculature are normal. The lungs are clear without consolidation, pleural effusion, or pneumothorax. Degenerative changes of the thoracic spine. Osseous structures are otherwise intact. IMPRESSION: 1. No acute radiographic abnormality in the chest. Dictated by: Dictated on workstation # [id number]
== END ==
LOC: RAD FS 11:28
PROVIDERS: ATTEND Nurse Practitioner Family
DX: R05.3 Chronic cough (principal)
CPT/HCPCS: 71046

== ENCOUNTER 2022-04-05 07:00 | Emergency (ER) | payer MEDICARE, OTHER ==
[2022-04-05] MEDS ORDERED: FAMOTIDINE 20 MG (PEPCID) TABLET PO STA (07:19)
--- NOTE | 2022-04-05 07:22 | ED Abdominal Pain ---
General Stated Complaint: ABD PAIN Source of Information: Patient Exam Limitations: No Limitations History of Present Illness Date Seen by Provider: Apr 05, 2022 Time Seen by Provider: 07:03 Initial Comments 89-year-old female with past medical history most notable for hypertension coming in due to right upper quadrant abdominal pain. Started Monday, worsened yesterday, its constant, aching, moderate. Nothing really seems to make it better or worse. Had some Ensure for lunch yesterday which did not change the pain. Has not eaten since then. 60 medicine to try to have multiple bowel movements since she believes she was constipated. She had a couple bowel movements this morning which did not change the pain. She states she felt nauseous earlier but no vomiting. Denies really ever having this pain before. Denies any real chest pain with this, shortness of breath, palpitations, fever, chills, vomiting, diarrhea, weakness, numbness, or any other concerns. She has had a prior hysterectomy and appendectomy. She does have her gallbladder. Allergies and Home Medications Allergies Coded Allergies: No Known Drug Allergies (Unverified , 08/20/18) Patient Home Medication List Home Medication List Reviewed: Yes Doxycycline Hyclate (Doxycycline Hyclate) 100 Mg Tablet, 100 MG PO BID Prescribed by: HANK TAYLOR on 08/20/181732 Triamcinolone Acet (Triamcinolone Acetonide 0.1% Ointment) 15 Gm Oint, 1 APPLIC TP BID Prescribed by: HANK TAYLOR on 08/20/181732 Review of Systems Review of Systems Constitutional: No fever EENTM: No Symptoms Reported Respiratory: No Symptoms Reported Cardiovascular: No Symptoms Reported Gastrointestinal: See HPI Genitourinary: No Symptoms Reported Musculoskeletal: no symptoms reported Skin: no symptoms reported Psychiatric/Neurological: No Symptoms Reported Endocrine: No Symptoms Reported Hematologic/Lymphatic: No Symptoms Reported All Other Systems Reviewed Negative Unless Noted: Yes Past Wkntcdv-Ectssz-Wovhns Hx Patient Social History Tobacco Use?: No Seasonal Allergies Seasonal Allergies: No Past Medical History Surgeries: Yes Appendectomy, Breast, Cystectomy, Hysterectomy, Orthopedic Respiratory: No Cardiac: Yes Angina, Hypertension 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 oz. 68.446464rw; 28.00 BMI Method:Stated General Appearance: WD/WN, no apparent distress HEENT: PERRL/EOMI, normal ENT inspection, pharynx normal Neck: non-tender, full range of motion, supple, normal inspection Respiratory: chest non-tender, lungs clear, normal breath sounds, no respiratory distress, no accessory muscle use Cardiovascular: regular rate, rhythm, no edema, no murmur Gastrointestinal: normal bowel sounds, soft; No distended, No guarding, No rebound; tenderness (Mild tenderness in the right upper quadrant which recreates her pain) Extremities: normal range of motion, non-tender, normal inspection, no pedal edema, no calf tenderness, normal capillary refill Back: normal inspection, no CVA tenderness Neurologic/Psychiatric: no motor/sensory deficits, alert, normal mood/affect Skin: normal color, warm/dry Lymphatic: no adenopathy Progress/Results/Core Measures Results/Orders Lab Results Laboratory Tests Test 04/05/22 07:15 04/05/22 07:30 Range/Units Urine Color YELLOW Urine Clarity CLEAR Urine pH 7.0 5-9 Urine Specific [place] 1.010 L 1.016-1.022 Urine Protein NEGATIVE NEGATIVE Urine Glucose (UA) NEGATIVE NEGATIVE Urine Ketones NEGATIVE NEGATIVE Urine Nitrite NEGATIVE NEGATIVE Urine Bilirubin NEGATIVE NEGATIVE Urine Urobilinogen 0.2 < = 1.0 MG/DL Urine Leukocyte Esterase NEGATIVE NEGATIVE Urine RBC (Auto) NEGATIVE NEGATIVE Urine RBC NONE /HPF Urine WBC NONE /HPF Urine Squamous Epithelial Cells RARE /HPF Urine Crystals NONE /LPF Urine Bacteria NEGATIVE /HPF Urine Casts NONE /LPF Urine Mucus NEGATIVE /LPF Urine Culture Indicated NO White Blood Count 5.3 4.3-11.0 10^3/uL Red Blood Count 5.28 H 3.80-5.11 10^6/uL Hemoglobin 14.1 11.5-16.0 g/dL Hematocrit 43 35-52 % Mean Corpuscular Volume 81 80-99 fL Mean Corpuscular Hemoglobin 27 25-34 pg Mean Corpuscular Hemoglobin Concent 33 32-36 g/dL Red Cell Distribution Width 13.7 10.0-14.5 % Platelet Count 131 130-400 10^3/uL Mean Platelet Volume 10.0 9.0-12.2 fL Immature Granulocyte % (Auto) 0 % Neutrophils (%) (Auto) 66 42-75 % Lymphocytes (%) (Auto) 23 12-44 % Monocytes (%) (Auto) 8 0-12 % Eosinophils (%) (Auto) 2 0-10 % Basophils (%) (Auto) 1 0-10 % Neutrophils # (Auto) 3.5 1.8-7.8 10^3/uL Lymphocytes # (Auto) 1.2 1.0-4.0 10^3/uL Monocytes # (Auto) 0.4 0.0-1.0 10^3/uL Eosinophils # (Auto) 0.1 0.0-0.3 10^3/uL Basophils # (Auto) 0.1 0.0-0.1 10^3/uL Immature Granulocyte # (Auto) 0.0 0.0-0.1 10^3/uL Percent Immature Platelet Fraction 2.4 0.0-7.6 % Sodium Level 134 L 135-145 MMOL/L Potassium Level 4.2 3.6-5.0 MMOL/L Chloride Level 98 98-107 MMOL/L Carbon Dioxide Level 25 21-32 MMOL/L Anion Gap 11 5-14 MMOL/L Blood Urea Nitrogen 11 7-18 MG/DL Creatinine 0.67 0.60-1.30 MG/DL Estimat Glomerular Filtration Rate 83 BUN/Creatinine Ratio 16 Glucose Level 109 H 70-105 MG/DL Calcium Level 9.7 8.5-10.1 MG/DL Corrected Calcium 9.3 8.5-10.1 MG/DL Total Bilirubin 0.7 0.1-1.0 MG/DL Aspartate Amino Transf (AST/SGOT) 26 5-34 U/L Alanine Aminotransferase (ALT/SGPT) 19 0-55 U/L Alkaline Phosphatase 113 40-136 U/L Troponin I < 0.30 <0.30 NG/ML Total Protein 6.9 6.4-8.2 GM/DL Albumin 4.5 3.2-4.5 GM/DL Lipase 31 8-78 U/L My Orders Orders - FROY MCGUIRE MD Ua Culture If Indicated (04/05/22 07:14) Comprehensive Metabolic Panel (04/05/22 07:19) Lipase (04/05/22 07:19) Ed Iv/Invasive Line Start (04/05/22 07:19) Cbc With Automated Diff (04/05/22 07:19) Ct Abdomen/Pelvis W (04/05/22 07:19) Acetaminophen Tablet (Tylenol Tablet) (04/05/22 07:30) Lidocaine 2% Viscous 15 Ml (Xylocaine Vi (04/05/22 07:30) Famotidine Tablet (Pepcid Tablet) (04/05/22 07:19) Antacid Suspension (Mylanta Suspension (04/05/22 07:30) Troponin I Fs (04/05/22 07:19) Iohexol Injection (Omnipaque 350 Mg/Ml 1 (04/05/22 07:45) Received Contrast (Hold Metformin- Contr (04/05/22 07:45) Sodium Chloride Flush (Catheter Flush Sy (04/05/22 07:45) Ns (Ivpb) (Sodium Chloride 0.9% Ivpb Bag (04/05/22 07:45) Medications Given in ED Current Medications Medications Dose Ordered Sig/Juan Route Start Time Stop Time Status Last Admin Dose Admin Acetaminophen 1,000 mg ONCE ONCE PO 04/05/22 07:30 04/05/22 07:31 DC 04/05/22 07:29 1,000 MG Al Hydrox/Mg Hydrox/Simethicone 30 ml ONCE ONCE PO 04/05/22 07:30 04/05/22 07:31 DC 04/05/22 07:29 30 ML Iohexol 75 ml ONCE ONCE IV 04/05/22 07:45 04/05/22 07:46 DC 04/05/22 08:30 75 ML Lidocaine HCl 15 ml ONCE ONCE PO 04/05/22 07:30 04/05/22 07:31 DC 04/05/22 07:29 15 ML Sodium Chloride 10 ml NEEDED PRN IV 04/05/22 07:45 04/05/22 08:30 10 ML Sodium Chloride 100 ml ONCE ONCE IV 04/05/22 07:45 04/05/22 07:46 DC 04/05/22 08:30 100 ML Vital Signs/I&O 04/05/22 04/05/22 07:10 09:03 Temp 36.5 36.5 Pulse 84 80 Resp 16 16 B/P (MAP) 184/98 (126) 168/62 Pulse Ox 97 97 O2 Delivery Room Air Room Air Progress Progress Note : Progress Note 89-year-old female presenting for right upper quadrant abdominal pain has been going on for couple days. ABCs were intact and vitals were stable on presentation. She had some mild right upper quadrant pain but no signs of peritonitis. Patient's overall well-appearing. Differential includes cholecystitis versus symptomatic cholelithiasis versus pancreatitis versus gastritis versus less likely vascular versus some other etiology. She was given Tylenol as well as a GI cocktail with moderate improvement in symptoms. Basic labs essentially unremarkable including normal white blood cell count, normal LFTs, normal urinalysis. CT abdomen pelvis with a normal appearing gallbladder, and no acute findings that would point to the cause of her symptoms. We will order an ultrasound of her gallbladder as an outpatient to further evaluate, but I think it is unlikely she has cholecystitis at this time. 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 I suspect this could be related at this time. I will have her follow back up with his GI specialist at [facility]. I believe she is otherwise stable for discharge with outpatient follow-up. She was sent home with strict return precautions. Diagnostic Imaging Diagonstic Imaging: CT (abd/pelvis) Comments [facility], [place] NAME: CHRISTINE WEBER [facility] REC#: [id number] PT STATUS: REG ER : 1930 PHYSICIAN: FROY MCGUIRE MD ADMIT DATE: 04/05/22/ER FS Draft Date of Exam:04/05/22 CT ABDOMEN/PELVIS W EXAMINATION: CT abdomen and pelvis with intravenous contrast. TECHNIQUE: Multiple contiguous axial images were obtained through the abdomen and pelvis after the uneventful administration of intravenous contrast. All CT scans use one or more of the following dose optimizing techniques: automated exposure control, MA and/or KvP adjustment based on patient size and exam type or iterative reconstruction. HISTORY: Right upper quadrant pain. Nausea. COMPARISON: 03/27/2019. FINDINGS: The heart is unremarkable. Minimal atelectasis is seen in the right lung base. The liver, spleen, pancreas, adrenal glands, and kidneys have a normal appearance. The gallbladder is unremarkable. There is no pathologically enlarged mesenteric or retroperitoneal adenopathy. The bowel loops are nondilated. Diverticulosis of the sigmoid colon is seen without evidence of acute diverticulitis. There is no free fluid or free air. No acute osseous abnormalities. There is calcified aortic and iliac atherosclerotic plaque without aneurysm. There is bladder wall thickening. The urinary bladder is nondistended. There is no free air, loculated collection, or adenopathy in the pelvis. IMPRESSION: 1. Unremarkable appearance of the gallbladder. Consider liver gallbladder ultrasound to further evaluate. 2. Scattered diverticula in the sigmoid colon without evidence of acute diverticulitis. 3. Urinary bladder wall thickening, which can be seen with inadequate distention and/or cystitis. Recommend correlation with UA. Dictated on workstation # [id number] Dict: 04/05/22 0850 Trans: 04/05/22 0854 [facility] [id number] Interpreted by: RYAN MERCHANT DO Electronically signed by: Departure Impression Primary Impression: RUQ pain Disposition: 01 HOME, SELF-CARE Condition: Stable Departure-Patient Inst. Decision time for Depature: 09:10 Referrals: JODI PAREKH APRN (PCP) Primary Care Physician [facility] (Family) Primary Care Physician Patient Instructions: Abdominal Pain, Adult ED Add. Discharge Instructions: Please call the number on the paperwork that we gave you to have the ultrasound scheduled for you to complete. I want you to follow-up with your GI specialist that did your scope up in [place] since I believe your symptoms could be related. Otherwise I recommend taking Tylenol for pain. If you have uncontrollable vomiting, fever, with the pain changes or worsens even more, I would want you to be reevaluated by a doctor. FROY MCGUIRE MD Apr 05, 2022 07:22
[2022-04-05] MEDS ORDERED: ANTACID SUSP 30 ML UDC (MYLANTA) PO ONE (07:30)
[2022-04-05] MEDS ORDERED: ACETAMINOPHEN 500 MG TAB (TYLENOL) PO ONE (07:30)
[2022-04-05] MEDS ORDERED: LIDOCAINE 2% VISCOUS 15 ML UDC PO ONE (07:30)
[2022-04-05 07:42] LABS: BILIRUBIN,URINE NEGATIVE (NEGATIVE); CLARITY,URINE CLEAR; COLOR,URINE YELLOW; GLUCOSE, URINE (UA) NEGATIVE (NEGATIVE); KETONES,URINE NEGATIVE (NEGATIVE); LEUKOCYTE ESTERASE ,URINE NEGATIVE (NEGATIVE); NITRITE,URINE NEGATIVE (NEGATIVE); PROTEIN,URINE NEGATIVE (NEGATIVE)
[2022-04-05] MEDS ORDERED: HOLD METFORMIN - RECEIVED CONTRAST 20 ML VIAL IV SCH (07:45)
[2022-04-05] MEDS ORDERED: NS 100 ML (IVPB) BAG IV ONE (07:45)
[2022-04-05] MEDS ORDERED: IOHEXOL 350 MG/ML 100 ML (OMNIPAQUE 350) VIAL IV ONE (07:45)
[2022-04-05] MEDS ORDERED: CATHETER FLUSH 10 ML SYR IV PRN (07:45)
[2022-04-05 07:58] LABS: BASOPHILS # (AUTO) 0.1 10^3/uL (0.0-0.1); BASOPHILS % (AUTO) 1 % (0-10); EOSINOPHILS # (AUTO) 0.1 10^3/uL (0.0-0.3); EOSINOPHILS % (AUTO) 2 % (0-10); HEMATOCRIT 43 % (35-52); HEMOGLOBIN 14.1 g/dL (11.5-16.0); LYMPHOCYTES # (AUTO) 1.2 10^3/uL (1.0-4.0); LYMPHOCYTES % (AUTO) 23 % (12-44); MEAN CORPUSCULAR HEMOGLOBIN 27 pg (25-34); MEAN CORPUSCULAR HGB CONC 33 g/dL (32-36); MEAN CORPUSCULAR VOLUME 81 fL (80-99); MONOCYTES # (AUTO) 0.4 10^3/uL (0.0-1.0); MONOCYTES % (AUTO) 8 % (0-12); NEUTROPHILS # (AUTO) 3.5 10^3/uL (1.8-7.8); NEUTROPHILS % (AUTO) 66 % (42-75); PLATELET COUNT 131 10^3/uL (130-400); WHITE BLOOD COUNT 5.3 10^3/uL (4.3-11.0)
[2022-04-05 07:59] LABS: BACTERIA,URINE NEGATIVE /HPF; SQUAMOUS EPITHELIAL CELL,UR RARE /HPF
[2022-04-05 08:08] LABS: POTASSIUM 4.2 MMOL/L (3.6-5.0)
[2022-04-05 08:09] LABS: ALBUMIN 4.5 GM/DL (3.2-4.5); BILIRUBIN,TOTAL 0.7 MG/DL (0.1-1.0); CALCIUM 9.7 MG/DL (8.5-10.1); CREATININE SERUM 0.67 MG/DL (0.60-1.30); TOTAL PROTEIN 6.9 GM/DL (6.4-8.2)
--- NOTE | 2022-04-05 08:54 | Diagnostic Imaging Report ---
EXAMINATION: CT abdomen and pelvis with intravenous contrast. TECHNIQUE: Multiple contiguous axial images were obtained through the abdomen and pelvis after the uneventful administration of intravenous contrast. All CT scans use one or more of the following dose optimizing techniques: automated exposure control, MA and/or KvP adjustment based on patient size and exam type or iterative reconstruction. HISTORY: Right upper quadrant pain. Nausea. COMPARISON: 03/27/2019. FINDINGS: The heart is unremarkable. Minimal atelectasis is seen in the right lung base. The liver, spleen, pancreas, adrenal glands, and kidneys have a normal appearance. The gallbladder is unremarkable. There is no pathologically enlarged mesenteric or retroperitoneal adenopathy. The bowel loops are nondilated. Diverticulosis of the sigmoid colon is seen without evidence of acute diverticulitis. There is no free fluid or free air. No acute osseous abnormalities. There is calcified aortic and iliac atherosclerotic plaque without aneurysm. There is bladder wall thickening. The urinary bladder is nondistended. There is no free air, loculated collection, or adenopathy in the pelvis. IMPRESSION: 1. Unremarkable appearance of the gallbladder. Consider liver gallbladder ultrasound to further evaluate. 2. Scattered diverticula in the sigmoid colon without evidence of acute diverticulitis. 3. Urinary bladder wall thickening, which can be seen with inadequate distention and/or cystitis. Recommend correlation with UA. Dictated by: Dictated on workstation # [id number]
[2022-04-05 09:03] VITALS: BP 168/62
== END 2022-04-05 09:12 | disposition home or self-care (01) ==
LOC: EDUNIT# 07:00 → ER FS 07:04
DX: R10.11 Right upper quadrant pain (principal)
CPT/HCPCS: 36415; 74177; 80053; 81000; 83690; 84484; 85025; Q9967

== ENCOUNTER → 2022-05-06 | Outpatient (CLI) | payer MEDICARE, OTHER ==
--- NOTE | 2022-05-06 12:46 | Diagnostic Imaging Report ---
Indication: Left-sided pain. 3 view left rib series performed showed no lung contusion, pneumothorax or hemothorax on the left. No pleural hematoma. No free air beneath the left diaphragm. No displaced or radiographically appreciable rib fracture deformity. Impression: No acute-appearing abnormality. Dictated by: Dictated on workstation # [id number]
== END ==
LOC: RAD FS 11:27
PROVIDERS: ATTEND Registered Nurse Community Health
DX: R07.81 Pleurodynia (principal)
CPT/HCPCS: 71100

== ENCOUNTER 2022-06-17 16:58 | Emergency (ER) | payer MEDICARE, OTHER ==
[~2022-06-17] VITALS: Ht 160 cm; Wt 64.0 kg
[2022-06-17] MEDS ORDERED: ALPRAZolam 0.5 MG (XANAX) TAB PO STA (17:05)
--- NOTE | 2022-06-17 17:11 | ED Cardiac General ---
History of Present Illness General Chief Complaint: Cardiac/General Problems Stated Complaint: ELEV BP Source: patient Exam Limitations: no limitations History of Present Illness Date Seen by Provider: Jun 17, 2022 Time Seen by Provider: 16:58 Initial Comments 89-year-old female with past medical history of hypertension and GERD coming in via EMS from home because the patient felt 30 seconds of a mild cold sweat. She states this happened once last night. She says normally when this happens, she would take a Xanax and be better. She could not find her Xanax today. Denies any pain associated with this, palpitations, vomiting, focal weakness or numbness, vision changes, chest pain, leg swelling or pain, shortness of breath, fever, chills, or any other concerns. After this occurred, she started to take her blood pressure, felt like it was going to be high, stopped before it took it, and call 911. Allergies and Home Medications Allergies Coded Allergies: No Known Drug Allergies (Unverified , 08/20/18) Patient Home Medication List Home Medication List Reviewed: Yes Doxycycline Hyclate (Doxycycline Hyclate) 100 Mg Tablet, 100 MG PO BID Prescribed by: HANK TAYLOR on 08/20/181732 Triamcinolone Acet (Triamcinolone Acetonide 0.1% Ointment) 15 Gm Oint, 1 APPLIC TP BID Prescribed by: HANK TAYLOR on 08/20/181732 Review of Systems Review of Systems Constitutional: No fever EENTM: No Symptoms Reported Respiratory: No Symptoms Reported Cardiovascular: No Symptoms Reported Gastrointestinal: No Symptoms Reported Genitourinary: No Symptoms Reported Musculoskeletal: no symptoms reported Skin: no symptoms reported Psychiatric/Neurological: No Symptoms Reported Endocrine: No Symptoms Reported Past Rhwdzlx-Leaeni-Dwxqkw Hx Patient Social History Tobacco Use?: No Immunizations Up To Date First/Initial COVID19 Vaccinat: June 02, 2020 Second COVID19 Vaccination Daniel: July 03, 2020 Third COVID19 Vaccination Date: June 02, 2020 Seasonal Allergies Seasonal Allergies: No Past Medical History Surgeries: Yes Appendectomy, Breast, Cystectomy, Hysterectomy, Orthopedic Respiratory: No Cardiac: Yes Angina, Hypertension 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 oz. 68.109749kb; 28.00 BMI Method:Stated General Appearance: No Apparent Distress, WD/WN, Other (Patient smiling, laughing, appears very comfortable) HEENT: PERRL/EOMI, Normal ENT Inspection, Pharynx Normal Neck: Full Range of Motion, Normal Inspection, Non Tender, Supple Respiratory: Chest Non Tender, Lungs Clear, Normal Breath Sounds, No Accessory Muscle Use, No Respiratory Distress Cardiovascular: Regular Rate, Rhythm, No Edema, Normal Peripheral Pulses Gastrointestinal: Normal Bowel Sounds, Non Tender, Soft; No Distended, No Guarding Extremity: Normal Capillary Refill, Normal Inspection, Normal Range of Motion, Non Tender, No Calf Tenderness, No Pedal Edema Neurologic/Psychiatric: Alert, No Motor/Sensory Deficits, Normal Mood/Affect Skin: Normal Color, Warm/Dry Progress/Results/Core Measures Results/Orders My Orders Orders - FROY MCGUIRE MD Alprazolam Tablet (Xanax Tablet) (06/17/22 17:05) Ekg Tracing (06/17/22 17:05) Vital Signs/I&O 06/17/22 17:02 Temp 36.7 Pulse 81 Resp 16 B/P (MAP) 201/87 (125) Pulse Ox 96 O2 Delivery Room Air Progress Progress Note : Progress Note 89-year-old female with above history coming in due to a few seconds of feeling like she had a cold sweat. ABCs were intact and vitals were stable on presentation although she was hypertensive. Blood sugar is normal here. Blood pressure about 10 minutes after being here 194/74. She states this happens intermittently when she is anxious, Xanax tends to bring it down. She was given her home dose of her Xanax. EKG with no acute ischemic changes on my interpretation. Patient is very well-appearing, no pain or complaints at this time, and has been back to her baseline since even before EMS arrived on scene. Blood pressure trended down to 130's/70's, patient continued to appear well. I believe she stable for discharge with outpatient follow-up. She was sent home with strict return precautions. Initial ECG Impression Date: Jun 17, 2022 Initial ECG Impression Time: 17:09 Initial ECG Rate: 73 Initial ECG Rhythm: Normal Sinus Comment Narrow QRS, normal axis, no significant ST changes or T wave abnormalities Departure Impression Primary Impression: Cold sweat Additional Impression: Hypertension Qualified Codes: I10 - Essential (primary) hypertension Disposition: 01 HOME, SELF-CARE Condition: Stable Departure-Patient Inst. Decision time for Depature: 17:45 Referrals: JODI PAREKH APRN (PCP) Primary Care Physician [facility] (Family) Primary Care Physician Patient Instructions: High Blood Pressure (DC) Add. Discharge Instructions: Continue to take your medicines as prescribed. If you have any severe chest pain, severe shortness of breath, or any other concerns then please come back to the ER. FROY MCGUIRE MD Jun 17, 2022 17:11
[2022-06-17 17:43] VITALS: BP 138/72
== END 2022-06-17 17:49 | disposition home or self-care (01) ==
LOC: EDUNIT# 16:58 → ER FS 16:59
DX: I10 Essential (primary) hypertension (principal); R61 Generalized hyperhidrosis; F41.9 Anxiety disorder, unspecified
CPT/HCPCS: 82947; 93005

== ENCOUNTER 2022-08-05 19:25 | Emergency (ER) | payer MEDICARE, OTHER ==
[2022-08-05] MEDS ORDERED: NITROGLYCERIN 2% OINT 1 GM UNIT DOSE PACKET TOP ONE (19:45)
[2022-08-05 19:48] LABS: BASOPHILS # (AUTO) 0.1 10^3/uL (0.0-0.1); BASOPHILS % (AUTO) 1 % (0-10); EOSINOPHILS # (AUTO) 0.2 10^3/uL (0.0-0.3); EOSINOPHILS % (AUTO) 3 % (0-10); HEMATOCRIT 41 % (35-52); HEMOGLOBIN 13.3 g/dL (11.5-16.0); LYMPHOCYTES # (AUTO) 1.6 10^3/uL (1.0-4.0); LYMPHOCYTES % (AUTO) 28 % (12-44); MEAN CORPUSCULAR HEMOGLOBIN 27 pg (25-34); MEAN CORPUSCULAR HGB CONC 33 g/dL (32-36); MEAN CORPUSCULAR VOLUME 83 fL (80-99); MEAN PLATELET VOLUME 9.9 fL (9.0-12.2); MONOCYTES # (AUTO) 0.5 10^3/uL (0.0-1.0); MONOCYTES % (AUTO) 10 % (0-12); NEUTROPHILS # (AUTO) 3.3 10^3/uL (1.8-7.8); NEUTROPHILS % (AUTO) 58 % (42-75); PLATELET COUNT 131 10^3/uL (130-400); WHITE BLOOD COUNT 5.6 10^3/uL (4.3-11.0)
[2022-08-05] MEDS ORDERED: FAMOTIDINE 20 MG (PEPCID) TABLET PO STA (19:48)
--- NOTE | 2022-08-05 19:58 | Diagnostic Imaging Report ---
INDICATION: Intermittent chest pain and left arm pain. COMPARISON: 09/05/2020. FINDINGS: Lungs are clear without pneumonia or edema. There is no effusion or pneumothorax. Heart size is appropriate. Pulmonary vascularity is normal. There is no acute osseous abnormality. IMPRESSION: Stable chest. There is no radiographic finding of an acute cardiopulmonary process. Dictated by: Dictated on workstation # [id number]
[2022-08-05] MEDS ORDERED: ANTACID SUSP 30 ML UDC (MYLANTA) PO ONE (20:00)
[2022-08-05 20:01] LABS: INR 0.9 (0.8-1.4); PROTHROMBIN TIME PATIENT 12.3 SEC (12.2-14.7)
[2022-08-05 20:11] LABS: ALBUMIN 4.4 GM/DL (3.2-4.5); BILIRUBIN,TOTAL 0.3 MG/DL (0.1-1.0); CALCIUM 9.7 MG/DL (8.5-10.1); CREATININE SERUM 0.73 MG/DL (0.60-1.30); MAGNESIUM 2.2 MG/DL (1.6-2.4); POTASSIUM 3.7 MMOL/L (3.6-5.0); TOTAL PROTEIN 6.8 GM/DL (6.4-8.2)
--- NOTE | 2022-08-05 20:16 | ED Cardiac General ---
History of Present Illness General Chief Complaint: Chest Pain Stated Complaint: HIGH BP Nursing Triage Note: Pt complaining of high blood pressure. Pt also states she has pressure in her chest that radiates to her left arm. Source: patient, old records Exam Limitations: no limitations History of Present Illness Date Seen by Provider: August 05, 2022 Time Seen by Provider: 19:29 Initial Comments 89-year-old female with past medical history of hypertension, GERD, and anxiety coming in due to elevated blood pressure. An elevated all day, she recently changed from metoprolol over to carvedilol, and also takes ramipril. She took her medicines this morning, but is due for her nighttime medicine. Her blood pressure at home has been anywhere between 180s to 190s systolic. She is having some very mild chest pressure that radiates to her left arm when she thinks about it. Denies any cardiac history that she knows of. Otherwise denying any shortness of breath, fever, cough, abdominal pain, nausea, vomiting, weakness, headache, vision changes, or any other concerns. Allergies and Home Medications Allergies Coded Allergies: No Known Drug Allergies (Unverified , 08/20/18) Patient Home Medication List Home Medication List Reviewed: Yes Doxycycline Hyclate (Doxycycline Hyclate) 100 Mg Tablet, 100 MG PO BID Prescribed by: HANK TAYLOR on 08/20/181732 Triamcinolone Acet (Triamcinolone Acetonide 0.1% Ointment) 15 Gm Oint, 1 APPLIC TP BID Prescribed by: HANK TAYLOR on 08/20/181732 Review of Systems Review of Systems Constitutional: No fever EENTM: No Symptoms Reported Respiratory: No Symptoms Reported Cardiovascular: See HPI Gastrointestinal: No Symptoms Reported Genitourinary: No Symptoms Reported Musculoskeletal: no symptoms reported Skin: no symptoms reported Psychiatric/Neurological: No Symptoms Reported Endocrine: No Symptoms Reported Hematologic/Lymphatic: No Symptoms Reported Past Ttoqppa-Zpbopk-Qknrht Hx Patient Social History Tobacco Use?: No Substance use?: No Alcohol Use?: No Pt feels they are or have been: No Immunizations Up To Date First/Initial COVID19 Vaccinat: June 02, 2020 Second COVID19 Vaccination Daniel: July 03, 2020 Third COVID19 Vaccination Date: June 02, 2020 Seasonal Allergies Seasonal Allergies: No Past Medical History Surgery/Hospitalization HX: ANXIETY HTN GERD Surgeries: Yes Appendectomy, Breast, Cystectomy, Hysterectomy, Orthopedic Respiratory: No Cardiac: Yes Angina, Hypertension Neurological: No 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 oz. [id number]; 25.00 BMI Method:Stated General Appearance: No Apparent Distress, WD/WN HEENT: PERRL/EOMI, Normal ENT Inspection, Pharynx Normal Neck: Full Range of Motion, Normal Inspection, Non Tender, Supple Respiratory: Chest Non Tender, Lungs Clear, Normal Breath Sounds, No Accessory Muscle Use, No Respiratory Distress Cardiovascular: Regular Rate, Rhythm, No Edema, Normal Peripheral Pulses Gastrointestinal: Normal Bowel Sounds, Non Tender, Soft; No Distended, No Guarding Extremity: Normal Capillary Refill, Normal Inspection, Normal Range of Motion, Non Tender, No Calf Tenderness, No Pedal Edema Neurologic/Psychiatric: Alert, No Motor/Sensory Deficits, Normal Mood/Affect Skin: Normal Color, Warm/Dry Progress/Results/Core Measures Results/Orders Lab Results Laboratory Tests Test 08/05/22 19:44 Range/Units White Blood Count 5.6 4.3-11.0 10^3/uL Red Blood Count 4.94 3.80-5.11 10^6/uL Hemoglobin 13.3 11.5-16.0 g/dL Hematocrit 41 35-52 % Mean Corpuscular Volume 83 80-99 fL Mean Corpuscular Hemoglobin 27 25-34 pg Mean Corpuscular Hemoglobin Concent 33 32-36 g/dL Red Cell Distribution Width 13.6 10.0-14.5 % Platelet Count 131 130-400 10^3/uL Mean Platelet Volume 9.9 9.0-12.2 fL Immature Granulocyte % (Auto) 0 % Neutrophils (%) (Auto) 58 42-75 % Lymphocytes (%) (Auto) 28 12-44 % Monocytes (%) (Auto) 10 0-12 % Eosinophils (%) (Auto) 3 0-10 % Basophils (%) (Auto) 1 0-10 % Neutrophils # (Auto) 3.3 1.8-7.8 10^3/uL Lymphocytes # (Auto) 1.6 1.0-4.0 10^3/uL Monocytes # (Auto) 0.5 0.0-1.0 10^3/uL Eosinophils # (Auto) 0.2 0.0-0.3 10^3/uL Basophils # (Auto) 0.1 0.0-0.1 10^3/uL Immature Granulocyte # (Auto) 0.0 0.0-0.1 10^3/uL Prothrombin Time 12.3 12.2-14.7 SEC INR Comment 0.9 0.8-1.4 Activated Partial Thromboplast Time 29 24-35 SEC Sodium Level 141 135-145 MMOL/L Potassium Level 3.7 3.6-5.0 MMOL/L Chloride Level 104 98-107 MMOL/L Carbon Dioxide Level 25 21-32 MMOL/L Anion Gap 12 5-14 MMOL/L Blood Urea Nitrogen 14 7-18 MG/DL Creatinine 0.73 0.60-1.30 MG/DL Estimat Glomerular Filtration Rate 79 BUN/Creatinine Ratio 19 Glucose Level 97 70-105 MG/DL Calcium Level 9.7 8.5-10.1 MG/DL Corrected Calcium 9.4 8.5-10.1 MG/DL Magnesium Level 2.2 1.6-2.4 MG/DL Total Bilirubin 0.3 0.1-1.0 MG/DL Aspartate Amino Transf (AST/SGOT) 22 5-34 U/L Alanine Aminotransferase (ALT/SGPT) 17 0-55 U/L Alkaline Phosphatase 132 40-136 U/L Troponin I < 0.30 <0.30 NG/ML Pro-B-Type Natriuretic Peptide 150.7 <450.0 PG/ML Total Protein 6.8 6.4-8.2 GM/DL Albumin 4.4 3.2-4.5 GM/DL Lipase 34 8-78 U/L My Orders Orders - FROY MCGUIRE MD Cbc With Automated Diff (08/05/22 19:43) Magnesium (08/05/22 19:43) Chest 1 View Ap/Pa Only (08/05/22 19:43) Ekg Tracing (08/05/22 19:43) Comprehensive Metabolic Panel (08/05/22 19:43) Protime With Inr (08/05/22 19:43) Partial Thromboplastin Time (08/05/22 19:43) O2 (08/05/22 19:43) Monitor-Rhythm Ecg Trace Only (08/05/22 19:43) Ed Iv/Invasive Line Start (08/05/22 19:43) Lipase (08/05/22 19:43) Troponin I Fs (08/05/22 19:43) Probnp Fs (08/05/22 19:43) Famotidine Tablet (Pepcid Tablet) (08/05/22 19:48) Antacid Suspension (Mylanta Suspension (08/05/22 20:00) Hydralazine Injection (Apresoline Inject (08/05/22 20:30) Medications Given in ED Current Medications Medications Dose Ordered Sig/Juan Route Start Time Stop Time Status Last Admin Dose Admin Al Hydrox/Mg Hydrox/Simethicone 30 ml ONCE ONCE PO 08/05/22 20:00 08/05/22 20:01 DC 08/05/22 19:55 30 ML Hydralazine HCl 10 mg ONCE ONCE IV 08/05/22 20:30 08/05/22 20:31 DC 08/05/22 20:35 10 MG Vital Signs/I&O 08/05/22 19:34 Pulse 85 Resp 20 B/P (MAP) 210/86 (127) Pulse Ox 97 O2 Delivery Room Air Blood Pressure Mean: 127 Progress Progress Note : Progress Note 89-year-old female with above history coming in due to elevated blood pressure and very mild chest discomfort. ABCs were intact and vitals were stable on presentation other than she is hypertensive with systolic 180s to 190s. She is due for her home medications, so we gave her a dose of her carvedilol as well as ramipril. EKG ordered and interpreted by me showing no acute ischemic changes. Chest x-ray ordered and interpreted by me showing normal cardiac silhouette, no pneumothorax, no pneumonia. An IV was placed and basic labs were obtained including cardiac biomarkers. WBC normal, BNP normal, troponin negative, creatinine normal. She has a lot of symptoms related to GERD most days, so given a GI cocktail with improvement of symptoms. Later on required IV hydralazine with improvement in her blood pressure. 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 She is well appearing. I have a very low suspicion for ACS at this point. She is also low risk for a PE, is not tachycardic, is not hypoxic, and I do think she needs further evaluation for a PE at this time. I believe she is stable for discharge with outpatient follow up. She was sent home with strict return precautions. Initial ECG Impression Date: August 05, 2022 Initial ECG Impression Time: 19:38 Initial ECG Rate: 75 Initial ECG Rhythm: Normal Sinus Comment Narrow QRS, normal axis, no significant ST changes or T wave abnormalities, appears similar to prior EKG Diagnostic Imaging Diagonstic Imaging: Xray (chest) Comments [facility] [place], [place] NAME: CHRISTINE WEBER [facility] REC#: [id number] PT STATUS: REG ER : 1930 PHYSICIAN: FROY MCGUIRE MD ADMIT DATE: 08/05/22/ER FS Signed Date of Exam:08/05/22 CHEST 1 VIEW AP/PA ONLY INDICATION: Intermittent chest pain and left arm pain. COMPARISON: 09/05/2020. FINDINGS: Lungs are clear without pneumonia or edema. There is no effusion or pneumothorax. Heart size is appropriate. Pulmonary vascularity is normal. There is no acute osseous abnormality. IMPRESSION: Stable chest. There is no radiographic finding of an acute cardiopulmonary process. Dictated by: Dictated on workstation # [id number] Dict: 08/05/221952 Trans: 08/05/221957 [facility] [id number] Interpreted by: SHAYE EISENBERG MD Electronically signed by: SHAYE EISENBERG MD 08/05/221957 Departure Impression Primary Impression: Hypertension Qualified Codes: I10 - Essential (primary) hypertension Additional Impression: Chest pain Qualified Codes: R07.82 - Intercostal pain Disposition: 01 HOME, SELF-CARE Condition: Stable Departure-Patient Inst. Decision time for Depature: 21:00 Referrals: JODI PAREKH APRN (PCP) Primary Care Physician [facility] (Family) Primary Care Physician Patient Instructions: Chest Pain, Adult ED, High Blood Pressure ED Add. Discharge Instructions: Continue to take your blood pressure as prescribed. Take your blood pressure twice a day. If you have severe crushing chest pain, severe shortness of breath, weakness where you can move one side of your body, numbness where you cannot feel one side of your body, or worst headache of your life then we would want you to come to the ER. If you blood pressure is higher than 180/100, then you can take an additional dose of your carvedilol to go up to 25mg twice a day. Call your doctor and or superintendent overhead distribution if you have to do this a lot as they may need to just increase the dose. After you take your blood pressure medicine, give it at least an hour if not two to start working. FROY MCGUIRE MD August 05, 2022 20:16
[2022-08-05] MEDS ORDERED: hydrALAZINE (APESOLINE) 20 MG/ML VIAL IV ONE (20:30)
[2022-08-05 20:56] VITALS: BP 173/68
== END 2022-08-05 21:05 | disposition home or self-care (01) ==
LOC: EDUNIT# 19:25 → ER FS 19:26
DX: I10 Essential (primary) hypertension (principal); R07.89 Other chest pain; Z28.310 Unvaccinated for COVID-19
CPT/HCPCS: 36415; 71045; 80053; 83690; 83735; 83880; 84484; 85025; 85610; 85730; 93005; 93041